=== PATIENT | female | born 1950 | race Caucasian/White ===

== ENCOUNTER → 2016-04-27 | Outpatient (CLI) | payer OTHER ==
--- NOTE | 2016-04-27 17:05 | MA ---
Screening Digital Mammogram With iCAD Analysis Clinical Indications: Routine screening. Technique: Standard cephalocaudal projections are obtained. Digital breast tomosynthesis was performe d in the MLO projection with reconstruction at 1.0 mm slice thickness and composite MLO views reconst ructed. This examination is processed by the iCAD computer aided detection system. Comparison: May 2014 and April 2010. Breast density: Type B; Scattered fibroglandular densities. Findings: CAD was reviewed. No masses, suspicious calcifications or secondary signs of malignancy are seen. There has been no significant change in the appearance of either breast. Impression: Negative mammogram. BI-RADS 1. Recommendation: Routine mammographic screening in one year. [facility] will send a result letter to the patient. Negative mammography should not preclude additional workup of a clinically suspicious finding. The patient's information is entered into a reminder system with a target due date for her next mammo gram.
== END ==
LOC: FIMAGING 14:51
DX: Z12.31 Encounter for screening mammogram for malignant neoplasm of breast (principal)
CPT/HCPCS: G0202

== ENCOUNTER → 2016-12-30 | Outpatient (CLI) | payer OTHER | LOC: FIMAGING 07:55 | PROVIDERS: ATTEND Family Medicine | DX: R10.2 Pelvic and perineal pain (principal) ==

== ENCOUNTER → 2017-09-06 | Outpatient (CLI) | payer OTHER | LOC: FIMAGING 13:59 | PROVIDERS: ATTEND Family Medicine | DX: Z13.820 Encounter for screening for osteoporosis (principal); M85.89 Other specified disorders of bone density and structure, multiple sites ==

== ENCOUNTER → 2018-01-18 | Outpatient (CLI) | payer OTHER | LOC: FIMAGING 13:28 | PROVIDERS: ATTEND Family Medicine | DX: Z12.31 Encounter for screening mammogram for malignant neoplasm of breast (principal); Z80.3 Family history of malignant neoplasm of breast ==

== ENCOUNTER 2018-01-29 18:20 | Inpatient (IN) | payer OTHER ==
[2018-01-29] MEDS ORDERED: fentaNYL 100 MCG/2 ML INJ ONE (18:38)
[2018-01-29] MEDS ORDERED: ONDANSETRON 4 MG/2 ML VIAL ONE (18:38)
[2018-01-29] MEDS ORDERED: fentaNYL 100 MCG/2 ML INJ IVP ONE ×2 (18:39→19:18)
[2018-01-29] MEDS ORDERED: ONDANSETRON 4 MG/2 ML VIAL IVP ONE (18:40)
--- NOTE | 2018-01-29 18:53 | EDPHY ---
H & P Time Seen by Provider: 01/29/18 18:33 HPI/ROS: CHIEF COMPLAINT: Left shoulder pain HISTORY OF PRESENT ILLNESS: Patient is a 59-year-old female who presents emergency department after falling on her left shoulder. The patient's bent over their dog who was having a seizure. The patient thought that her was having seizure so she jumped off the couch. She subsequently tripped landing on her left shoulder. She now has severe left shoulder pain. It is worse with movement. She has no numbness or tingling. She did not strike her head or lose consciousness. No neck or back pain. Patient has had no previous shoulder surgery. Patient had a recent facial peel. REVIEW OF SYSTEMS: 10 systems were reveiwed and are negative with the exception of the elements mentioned in the history of present illness. Past Medical/Surgical History: Includes cataracts Smoking Status: Never smoked Physical Exam: Vitals noted GENERAL: Well-appearing, in no acute distress, alert. HEAD: No evidence of trauma. EYES: PERRLA, EOMI, normal to inspection. ENT: Airway intact, normal external examination. NECK: The trachea is midline. There is no crepitus. The C-spine is nontender. NEXUS criteria is negative (no midline tenderness, no distracting injury, no altered mental status, no recent alcohol use, no focal neurologic deficit). RESPIRATORY: [Clear to auscultation bilaterally, no rales, rhonchi or wheezing. No chest wall tenderness CVS: Regular rate and rhythm, no rubs, murmurs, or gallops. ABDOMEN: Soft, nontender, nondistended, no bruising or abrasions. Pelvis: Stable. No tenderness palpation. BACK: Normal to inspection, no spinal tenderness, no spinal step off, no notable bruising or abrasions. SKIN: Normal color, warm, dry. No pallor or diaphoresis.Patient's skin is peeling on the lateral aspect of her face and neck. EXTREMITIES: Right upper extremity: Atraumatic. No visible signs of trauma. No tenderness palpation. Neurovascular intact distally. Left upper extremity: Left shoulder swelling around the deltoid. There is tenderness to palpation with no crepitus. There is no step-off. The clavicle is intact. Neurovascular intact distally. Right lower extremity: Atraumatic. No visible signs of trauma. No tenderness palpation. Neurovascular intact distally. Left lower extremity: Atraumatic. No visible signs of trauma. No tenderness palpation. Neurovascular intact distally. NEURO/PSYCH: Alert and oriented x 3, GCS 15, normal mood and affect, normal motor sensory exam. Constitutional: Initial Vital Signs Temperature (C) 36.6 C 01/29/18 18:34 Heart Rate 75 01/29/18 18:34 Respiratory Rate 18 01/29/18 18:34 Blood Pressure 143/100 H 01/29/18 18:34 O2 Sat (%) 98 01/29/18 18:34 O2 Delivery Mode Room Air Allergies/Adverse Reactions: Penicillins Allergy (Verified 01/29/18 18:34) Sulfa (Sulfonamide Antibiotics) Allergy (Verified 01/29/18 18:34) sulfamethoxazole [From Septra] Allergy (Verified 01/29/18 18:34) trimethoprim [From Septra] Allergy (Verified 01/29/18 18:34) Medical Decision Making - Diagnostics Imaging Results: Imaging Impressions Shoulder X-Ray 01/29/18 18:32 Impression: 1. Fracture left humeral neck with about 10 mm of displacement of the humeral shaft medially with respect to the humeral head. ED Course/Re-evaluation: In the emergency department I met the patient on arrival. Discussed the plan and answered her questions. IV was placed. Patient was given fentanyl 100 mcg IV and Zofran 4 mg IV. Left shoulder x-ray was ordered Left shoulder x-ray: Please refer the dictated report. The patient has a fracture of her left humeral neck with 10 mm of displacement. I discussed the result with the patient. She was neurovascular intact distally on recheck. She was still having significant pain. She is given a repeat dose of fentanyl 100 mcg IV. I discussed the case with Dr. Colt Gibson. He recommended repair of her fracture. I discussed the case with Dr. Hammer. He will admit the patient. Differential Diagnosis: My differential includes but is not limited to shoulder fracture, shoulder contusion, dislocation, head injury - Data Points Laboratory Results: Laboratory Results 01/29/18 19:05 01/29/18 01/29/18 01/29/18 19:05 19:05 19:05 WBC 7.00 10^3/uL 10^3/uL (3.80-9.50) RBC 4.48 10^6/uL 10^6/uL (4.18-5.33) Hgb 14.1 g/dL g/dL (12.6-16.3) Hct 42.1 % % (38.0-47.0) MCV 94.0 fL fL (81.5-99.8) MCH 31.5 pg pg (27.9-34.1) MCHC 33.5 g/dL g/dL (32.4-36.7) RDW 13.0 % % (11.5-15.2) Plt Count 202 10^3/uL 10^3/uL (150-400) MPV 11.3 fL fL (8.7-11.7) Neut % (Auto) 68.2 % % (39.3-74.2) Lymph % (Auto) 23.4 % % (15.0-45.0) [place] % (Auto) 6.7 % % (4.5-13.0) Eos % (Auto) 1.1 % % (0.6-7.6) Baso % (Auto) 0.3 % % (0.3-1.7) Nucleat RBC Rel Count 0.0 % % (0.0-0.2) Absolute Neuts (auto) 4.77 10^3/uL 10^3/uL (1.70-6.50) Absolute Lymphs (auto) 1.64 10^3/uL 10^3/uL (1.00-3.00) Absolute Monos (auto) 0.47 10^3/uL 10^3/uL (0.30-0.80) Absolute Eos (auto) 0.08 10^3/uL 10^3/uL (0.03-0.40) Absolute Basos (auto) 0.02 10^3/uL 10^3/uL (0.02-0.10) Absolute Nucleated RBC 0.00 10^3/uL 10^3/uL (0-0.01) Immature Gran % 0.3 % % (0.0-1.1) Immature Gran # 0.02 10^3/uL 10^3/uL (0.00-0.10) PT 13.6 SEC SEC (12.0-15.0) INR 1.02 (0.83-1.16) APTT 25.9 SEC SEC (23.0-38.0) Sodium Pending Potassium Pending Chloride Pending Carbon Dioxide Pending Anion Gap Pending BUN Pending Creatinine Pending Estimated GFR Pending Glucose Pending Calcium Pending Medications Given: Discontinued Medications Fentanyl (Sublimaze) 100 mcg IVP EDNOW ONE Stop: 01/29/18 18:40 Last Admin: 01/29/18 18:41 Dose: 100 mcg Fentanyl (Sublimaze) 100 mcg IVP EDNOW ONE Stop: 01/29/18 19:19 Last Admin: 01/29/18 19:22 Dose: 100 mcg Ondansetron HCl (Zofran) 4 mg IVP EDNOW ONE Stop: 01/29/18 18:41 Last Admin: 01/29/18 18:41 Dose: 4 mg Departure - Departure Disposition: [facility] Inpatient Acute Clinical Impression: Fracture, humerus Qualifiers: Encounter type: initial encounter Humerus Location: surgical neck Fracture type : closed Fracture morphology: unspecified fracture morphology Fracture alignment : displaced Laterality: left Qualified Code(s): S42.212A - Unspecified displaced fracture of surgical neck of left humerus, initial encounter for closed fracture Condition: Good
[2018-01-29 19:14] LABS: PLATELET COUNT 202 10^3/uL (150-400)
[2018-01-29 19:24] LABS: INR 1.02 (0.83-1.16); PROTIME(PATIENT) 13.6 SEC (12.0-15.0)
[2018-01-29] MEDS ORDERED: ACETAMINOPHEN 325 MG TAB PO PRN (19:31)
[2018-01-29] MEDS ORDERED: ONDANSETRON DISINTEGRATING 4 MG TAB PO PRN (19:31)
[2018-01-29] MEDS ORDERED: HYDROmorphONE/DILAUDID 1 MG/ML INJ IVP ONE (20:28)
--- NOTE | 2018-01-29 20:32 | PDGENHP ---
History and Physical - Chief Complaint L shoulder pain - History of Present Illness Luh Newell with a PMHx of hypothyroidism who presents to [facility] after a mechanical fall found to have a L humeral neck fracture. She reports she was eating dinner when she thought she heard her say he was having a seizure. Due to this, she got up quickly from sitting and tripped over somehting and fell on her L shoulder. She began to have a sharp pain located in her L shoulder, non-radiating, worse with movement, improved with rest and pain medications. She denies any LOC, dizziness, lightheadedness, chest pain. History Information - Allergies/Home Medication List Allergies/Adverse Reactions: Penicillins Allergy (Verified 01/29/18 18:34) Sulfa (Sulfonamide Antibiotics) Allergy (Verified 01/29/18:) sulfamethoxazole [From Septra] Allergy (Verified 01/29/18 18:34) trimethoprim [From Decra] Allergy (Verified 01/29/18 18:34) I have personally reviewed and updated: family history, medical history, social history, surgical history - Past Medical History Additional medical history: Hypothyroidism - Surgical History Reports: no pertinent surgical hx - Family History Positive for: non-pertinent - Social History Smoking Status: Never smoked Review of Systems Review of Systems: ROS: 10pt was reviewed & negative except for what was stated in HPI & below Physical Exam Physical Exam: Temp Pulse Resp BP Pulse Ox 36.6 C 75 18 143/100 H 98 01/29/18 18:34 01/29/18 18:34 01/29/18 18:34 01/29/18 18:34 01/29/18 18:34 Constitutional: uncomfortable Eyes: PERRL Ears, Nose, Mouth, Throat: moist mucous membranes Cardiovascular: regular rate and rhythym Respiratory: no respiratory distress, clear to auscultation Gastrointestinal: soft, non-tender abdomen Skin: warm Musculoskeletal: pain with ROM Neurologic: AAOx3 Psychiatric: interacting appropriately Lab Data & Imaging Review 01/29/18 19:05 01/29/18 19:05 WBC 7.00 10^3/uL (3.80-9.50) 01/29/18 19:05 RBC 4.48 10^6/uL (4.18-5.33) 01/29/18 19:05 Hgb 14.1 g/dL (12.6-16.3) 01/29/18 19:05 Hct 42.1 % (38.0-47.0) 01/29/18 19:05 MCV 94.0 fL (81.5-99.8) 01/29/18 19:05 MCH 31.5 pg (27.9-34.1) 01/29/18 19:05 MCHC 33.5 g/dL (32.4-36.7) 01/29/18 19:05 RDW 13.0 % (11.5-15.2) 01/29/18 19:05 Plt Count 202 10^3/uL (150-400) 01/29/18 19:05 MPV 11.3 fL (8.7-11.7) 01/29/18 19:05 Neut % (Auto) 68.2 % (39.3-74.2) 01/29/18:05 Lymph % (Auto) 23.4 % (15.0-45.0) 01/29/18:05 [place] % (Auto) 6.7 % (4.5-13.0) 01/29/18 19:05 Eos % (Auto) 1.1 % (0.6-7.6) 01/29/18:05 Baso % (Auto) 0.3 % (0.3-1.7) 01/29/18 19:05 Nucleat RBC Rel Count 0.0 % (0.0-0.2) 01/29/18 19:05 Absolute Neuts (auto) 4.77 10^3/uL (1.70-6.50) 01/29/18 19:05 Absolute Lymphs (auto) 1.64 10^3/uL (1.00-3.00) 01/29/18 19:05 Absolute Monos (auto) 0.47 10^3/uL (0.30-0.80) 01/29/18 19:05 Absolute Eos (auto) 0.08 10^3/uL (0.03-0.40) 01/29/18 19:05 Absolute Basos (auto) 0.02 10^3/uL (0.02-0.10) 01/29/18 19:05 Absolute Nucleated RBC 0.00 10^3/uL (0-0.01) 01/29/18 19:05 Immature Gran % 0.3 % (0.0-1.1) 01/29/18 19:05 Immature Gran # 0.02 10^3/uL (0.00-0.10) 01/29/18 19:05 PT 13.6 SEC (12.0-15.0) 01/29/18 19:05 INR 1.02 (0.83-1.16) 01/29/18 19:05 APTT 25.9 SEC (23.0-38.0) 01/29/18 19:05 Sodium 138 mEq/L (135-145) 01/29/18 19:05 Potassium 3.7 mEq/L (3.3-5.0) 01/29/18 19:05 Chloride 107 mEq/L (97-110) 01/29/18 19:05 Carbon Dioxide 23 mEq/l (22-31) 01/29/18 19:05 Anion Gap 8 mEq/L (6-14) 01/29/18 19:05 BUN 18 mg/dL (7-23) 01/29/18 19:05 Creatinine 0.9 mg/dL (0.6-1.0) 01/29/18 19:05 Estimated GFR > 60 01/29/18 19:05 Glucose 121 mg/dL (70-100) H 01/29/18 19:05 Calcium 9.7 mg/dL (8.5-10.4) 01/29/18 19:05 Assessment & Plan Assessment: Fracture, humerus, Left(Acute) - S/p mechanical fall - Ortho plans to take to OR tomorrow - NPO at midnight - Continue PRN pain medications Hypothyroidism - Continue home Synthroid FEN: NPO at midnight Ppx: Hold until after surgery Code: FULL Dispo: Admit to Observation
[2018-01-29] MEDS ORDERED: LACTULOSE 20 GM/30 ML UDCUP PO PRN (20:40)
[2018-01-29] MEDS ORDERED: POLYETHYLENE GLYCOL 3350 17 GM PKT PO PRN (20:40)
[2018-01-29] MEDS ORDERED: BISACODYL 10 MG SUPP PR PRN (20:40)
[2018-01-29] MEDS ORDERED: MAGNESIUM HYDROXIDE 30 ML UDCUP PO PRN (20:40)
[2018-01-29] MEDS: HYDROCODONE/APAP 5/325 TAB PO PRN (22:36)
[2018-01-29] MEDS: SENNOSIDES/DOCUSATE SODIUM TAB PO SCH (22:37)
[2018-01-30] MEDS: HYDROmorphONE/DILAUDID 1 MG/ML INJ IVP PRN ×4 (00:36→11:33)
[2018-01-30] MEDS: HYDROCODONE/APAP 5/325 TAB PO PRN ×2 (04:40→08:47)
[2018-01-30] MEDS: ONDANSETRON 4 MG/2 ML VIAL IVP PRN ×2 (08:48→15:56)
[2018-01-30] MEDS: SENNOSIDES/DOCUSATE SODIUM TAB PO SCH ×3 (08:49→20:23)
[2018-01-30] MEDS ORDERED: BUPIVACAINE 0.25% 30 ML SDV ONE (09:42)
[2018-01-30] MEDS ORDERED: EPINEPHrine 1 MG/ML INJ ONE (09:42)
[2018-01-30] MEDS ORDERED: ceFAZolin 2 GM/DEXTROSE 100 ML IV ONE (10:00)
--- NOTE | 2018-01-30 12:14 | PDMN ---
Medical Necessity Medical necessity: [facility] Musculoskeletal Surgery or Procedure GR yo w/ acute L humeral neck (shoulder) fracture secondary mechanical fall. Ortho consult, urgent surgery scheduled, NPO status, IVF, frequent pain management admin with IV opioids.
[2018-01-30] MEDS ORDERED: LR 1,000 ML IV ONE (12:27)
--- NOTE | 2018-01-30 12:49 | PDANEPAE ---
ANE History of Present Illness Left proximal humerus ORIF ANE Past Medical History - Cardiovascular History Hx Hypertension: No Hx Arrhythmias: No Hx Chest Pain: No Hx Coronary Artery / Peripheral Vascular Disease: No Hx CHF / Valvular Disease: No Hx Palpitations: No - Pulmonary History Hx COPD: No Hx Asthma/Reactive Airway Disease: No Hx Recent Upper Respiratory Infection: No Hx Oxygen in Use at Home: No Hx Sleep Apnea: No Sleep Apnea Screening Result - Last Documented: Negative - Endocrine History Hx Diabetes: Yes Hypothyroid: No - Chronic Pain History Chronic Pain: No ANE Review of Systems Review of Systems: ANE Patient History - Allergies Allergies/Adverse Reactions: sulfamethoxazole [From ] Allergy (Verified 01/29/18 18:34) trimethoprim [From ] Allergy (Verified 01/29/18 18:34) - Home Medications Home Medications: Levothyroxine [Synthroid 75 mcg (*)] 75 mcg PO DAILY06 01/29/18 [Last Taken ] - NPO status NPO Since - Liquids (Date): 01/29/18 NPO Since - Liquids (Time): 11:55 NPO Since - Solids (Date): 01/29/18 NPO Since - Solids (Time): 11:55 - Smoking Hx Smoking Status: Never smoked ANE Labs/Vital Signs - Labs Result Diagrams: 01/29/18 19:05 01/29/18 19:05 - Vital Signs Blood Pressure: 121/67 Heart Rate: 76 Respiratory Rate: 18 O2 Sat (%): 95 Height: 175.26 cm Weight: 71.668 kg ANE Physical Exam - Airway Neck exam: FROM Mallampati Score: Class 1 Mouth exam: normal dental/mouth exam - Pulmonary Pulmonary: no respiratory distress - Cardiovascular Cardiovascular: regular rate and rhythym - ASA Status ASA Status: II ANE Anesthesia Plan Anesthesia Plan: GA w LMA
[2018-01-30] MEDS ORDERED: CEFAZOLIN 2 GM/DEXTROSE/100 ML BAG IV ONE (12:51)
--- NOTE | 2018-01-30 12:55 | PDHPUP ---
History & Physical Update H&P update statement: This history and physical update is based on an assessment of the patient which was completed after admission or registration (within 24 hours), but prior to the surgery/procedure. H&P update: H&P reviewed & patient examined, no change in patient's condition since H&P completed
[2018-01-30] MEDS ORDERED: fentaNYL 100 MCG/2 ML INJ ONE (13:03)
[2018-01-30] MEDS ORDERED: PROPOFOL 200 MG/20 ML VIAL ONE (13:03)
[2018-01-30] MEDS ORDERED: LIDOCAINE 2% 5 ML SDV ONE (13:05)
[2018-01-30] MEDS ORDERED: ROPIVACAINE HCL 150 MG/30 ML INJ ONE (13:06)
[2018-01-30] MEDS ORDERED: MIDAZOLAM 2 MG/2 ML VIAL ONE (13:07)
[2018-01-30] MEDS ORDERED: DEXAMETHASONE 4 MG/ML VIAL ONE (13:10)
[2018-01-30] MEDS ORDERED: ONDANSETRON 4 MG/2 ML VIAL ONE (13:10)
[2018-01-30] MEDS ORDERED: KETOROLAC 30 MG/1 ML SDV ONE (13:10)
[2018-01-30] MEDS ORDERED: MIDAZOLAM 2 MG/2 ML VIAL IVP ONE (13:11)
--- NOTE | 2018-01-30 13:11 | POSTANESTH ---
Post Anesthetic Evaluation Cardiovascular Status: Normal, Stable Respiratory Status: Normal, Stable Level of Consciousness/Mental Status: Can Participate in Eval, Alert and Oriented Pain Control: Adequate, Prn Tx Ordered Nausea/Vomiting Control: Adequate, Prn Tx Ordered Complications Possibly Related to Anesthesia: None Noted
--- NOTE | 2018-01-30 13:26 | GCON ---
DATE OF CONSULTATION: 01/30/2018 PREOPERATIVE DIAGNOSIS: Left proximal humerus fracture. CHIEF COMPLAINT: Left proximal humerus fracture. HISTORY OF PRESENT ILLNESS: This is a female who fell while getting up to check on her who she thought was having a seizure. She tripped and landed directly on the shoulder, had immediate shoulder pain. She denied other injuries. She denied any loss of consciousness. She denies prior injury to this shoulder. ALLERGIES: To penicillin, sulfa, and Bactrim. PAST MEDICAL HISTORY: reviewed an non contributory. PAST SURGICAL HISTORY: Non-pertinent. FAMILY HISTORY: Reviewed, non-pertinent. SOCIAL HISTORY: She is nonsmoker and never smoked. MEDICATIONS: Please see inpatient list. REVIEW OF SYSTEMS: 10-point review of systems is performed noted above. PHYSICAL EXAM: GENERAL: She is alert, oriented. She is appropriate. She is in no distress. She is comfortable. HEENT: Her head is atraumatic and normocephalic. Her eyes are equal and reactive. Her mouth has moist mucous membranes. NECK: Supple. CARDIOVASCULAR: She has a regular rate and regular rhythm. RESPIRATORY: Rate shows no respiratory distress. ABDOMEN: Soft. EXTREMITIES: Her left upper extremity is in a sling. She is tender about the shoulder. She is nontender about the arm, the elbow and hand. She can move her hand and elbow well with no problems. She is neurovascularly intact. In the right upper extremity, she showed good range of motion. No evidence of tenderness, neurovascularly intact. Lower extremities are neurovascularly intact. Good range of motion. No evidence of tenderness. IMAGING: X-rays show an acute displaced left proximal humerus fracture. PLAN: Given the displacement, the amount of pain she has, and her high functional demands, I would recommend surgery for this. This will involve an ORIF. We discussed risks of nerve injury, particularly the axillary nerve. It is difficult to assess the axillary nerve at this point as well, it may have been injured during the injury. We discussed risks of wound complications, hardware complications, arthritis, pain, and she has elected to proceed. Informed consent was obtained. All questions were answered. She is marked preoperatively. /[id number]/MODL MTDD
[2018-01-30] MEDS ORDERED: ePHEDrine SULFATE 25 MG/5 ML SYR ONE (13:35)
--- NOTE | 2018-01-30 14:03 | ASMTCMCOM ---
CM Note CM Note Notes: Pt to OR today for L humerus fx after a fall at home. Pt resides with spouse. PT/OT to eval when appropriate. CM to follow. Date Signed: 01/30/2018 02:02 PM Electronically Signed By:SOPHIE Jamison
[2018-01-30] MEDS ORDERED: LR 500 ML IV PRN (14:25)
[2018-01-30] MEDS ORDERED: NALOXONE HCL 0.4 MG/ML INJ IVP PRN (14:25)
[2018-01-30] MEDS ORDERED: fentaNYL 100 MCG/2 ML INJ IVP PRN (14:25)
[2018-01-30] MEDS ORDERED: PROMETHAZINE HCL 25 MG/ML INJ IVP PRN (14:25)
[2018-01-30] MEDS ORDERED: ALBUTEROL 3 ML DEYVIAL IH PRN (14:25)
[2018-01-30] MEDS ORDERED: HYDROCODONE/APAP 5/325 TAB PO PRN (14:25)
[2018-01-30] MEDS ORDERED: ACETAMINOPHEN 500 MG TAB PO PRN (14:25)
[2018-01-30] MEDS ORDERED: oxyCODONE IR 5 MG TAB PO PRN (14:25)
[2018-01-30] MEDS ORDERED: HYDROmorphONE/DILAUDID 2 MG/ML INJ IVP PRN (14:25)
[2018-01-30] MEDS ORDERED: ONDANSETRON 4 MG/2 ML VIAL IVP PRN (14:25)
--- NOTE | 2018-01-30 14:44 | POSTOPPROG ---
Post Op Note Date of Operation: 01/30/18 Surgeon: Colt Gibson Care Clinician: Stephen Anesthesia: GET(General Endotracheal) Pre-op Diagnosis: L prox humerus fx Post-op Diagnosis: same Indication: above Procedure: ORIF L prox humerus fx Inf/Abcess present in the surg proc area at time of surgery?: No EBL: 50-100
--- NOTE | 2018-01-30 18:11 | HOSPPROG ---
Hospitalist Progress Note Assessment/Plan: The patient is a 67-year-old female with PMH hypothyroidism who was admitted for an acute left shoulder fracture. ASSESSMENT/PLAN: Left shoulder fracture, status post repair today Left shoulder pain Hypothyroid -analgesia as needed. -changing admission from observation to inpatient since patient is in a lot of pain postop and also feels very lethargic and requires ongoing pain control/ monitoring VTE prophylaxis: None. Ambulatory, leaving tomorrow. Code Status: Full code. Status: Inpatient for greater than 2 midnight stay. Disposition: [facility] with discharge tomorrow. This patient is new to me. Reviewed patient's chart/records for this visit. ____ SUBJECTIVE: Patient was seen postop. Feeling okay, anesthesia wearing off. OBJECTIVE: Physical Exam: General: The patient is a female who is alert and in no acute distress. HEENT: normocephalic, extraocular movements intact, conjunctivae clear. Mucous membranes moist. Neck: trachea midline, no visible masses. Abd: soft and nondistended. Musculoskeletal: Normal muscle tone/bulk. Neuro: cranial nerves II XII grossly intact. Intact gross motor and sensory function. Psych: Appropriate mood and appropriate affect. Skin: No pallor. No petechiae. Labs/Imaging/Other Tests: Personally reviewed/interpreted. Left shoulder x-ray-acute fracture noted Objective: Vital Signs Temp Pulse Resp BP Pulse Ox 36.2 C 75 14 102/52 L 92 01/30/18 17:45 01/30/18 17:45 01/30/18 17:45 01/30/18 17:45 01/30/18 17:45 01/29/18 01/30/18 01/31/18 05:59 05:59 05:59 Intake Total 1000 100 Output Total 0 Balance 1000 100 PT 13.6 SEC (12.0-15.0) 01/29/18 19:05 INR 1.02 (0.83-1.16) 01/29/18 19:05 - Time Spent With Patient Time Spent with Patient: greater than 25 minutes Time Spent with Patient: Greater than 25 minutes spent on this patients care, greater than 50% of time spent counseling, educating, and coordinating care regarding the above mentioned plan. ICD10 Worksheet Patient Problems: Problems Problem Status Onset Fracture, humerus Acute
--- NOTE | 2018-01-30 22:58 | GOP ---
DATE OF OPERATION: SURGEON: Colt Gibson MD BLACK ASH BURNER OPERATOR: Deondre Mitchell SA. PREOPERATIVE DIAGNOSIS: Left proximal humerus fracture. POSTOPERATIVE DIAGNOSIS: Left proximal humerus fracture. PROCEDURE PERFORMED: ORIF left proximal humerus fracture. FINDINGS: SPECIMENS: None. ESTIMATED BLOOD LOSS: 5 mL. INDICATIONS: Female with a displaced, angulated proximal humerus fracture, significant pain. Discus sed both nonoperative and operative treatment. She elected to proceed with surgery. Discussed risks of nonunion, malunion, continued pain, nerve injury, existing injury to the axillary nerve, wound co mplications, infection, hardware prominence, collapse, fracture displacement. She elected to proceed . Informed consent was obtained after all questions were answered. DESCRIPTION OF PROCEDURE: She was marked preoperatively and taken to the operative suite, sterilely prepped and draped in normal fashion. A time-out was performed verifying the site, side, location, i n agreement with the team. I injected her with Marcaine with epinephrine. 0.25%. She had a block, t oo. I made an anterior incision approach to the shoulder, bluntly dissecting muscle to protect neuro vascular structures. I came down to her fracture, which was somewhat impacted and significantly disp laced. With longitudinal traction and manipulation, I was able to manipulate this back into place. I then got a provisional reduction. I selected the plate and placed this on the bone, placed the cor tical screw, placed locking screws proximally, and nonlocking and locking screws distally, achieving good fixation. I moved this as a unit and it moved well. I took x-rays, showing no screws in the miller int, good fixation, stable construct. She was irrigated, closed with 0 Vicryl, 2-0 Vicryl, 3-0 Quill , and Dermabond. She was taken to PACU in stable condition. IMPLANT: Synthes anterior proximal humerus plate with locking and nonlocking screws. COMPLICATIONS: None. DRAINS: None. CONDITION: Stable. /[id number]/MODL
[2018-01-31] MEDS: HYDROCODONE/APAP 5/325 TAB PO PRN ×3 (03:42→11:59)
[2018-01-31] MEDS ORDERED: LEVOTHYROXINE 75 MCG TAB PO SCH (06:00)
[2018-01-31] MEDS: SENNOSIDES/DOCUSATE SODIUM TAB PO SCH (07:43)
--- NOTE | 2018-01-31 11:21 | PDDCSUM ---
Discharge Summary Discharge Summary: Date of Admission: January 29, 2018 Date of Discharge: January 31, 2018 Discharge Diagnoses: Acute left proximal humerus fracture, status post repair Left shoulder pain, secondary to above Hypothyroidism Admission Diagnoses: Acute left displaced humerus fracture Left shoulder pain Mechanical fall Hypothyroidism Consultants: Orthopedic surgery-Dr. Gibson Hospital Course: The patient is a 67-year-old female with a history of hypothyroidism who fractured her humerus the evening she was admitted to the hospital. She was sitting at home, when she thought her say he was having a seizure. She quickly studied up while turning and tripped on the leg of her sofa, flying several feet in the air before landing on her left shoulder. She experienced immediate severe pain, worse than childbirth. The next day the patient underwent surgical repair of her shoulder. She tolerated the procedure fine but was sedated from the procedure. She underwent observation overnight and was discharged home the next day in stable condition. Physical Exam: General: The patient is a female who is alert and in no acute distress. HEENT: normocephalic, extraocular movements intact, conjunctivae clear, no lesions on face. Mucous membranes moist. Neck: trachea midline, no visible masses, no external lesions. Abd: soft and nondistended. Musculoskeletal: Left arm in a sling Neuro: cranial nerves II XII grossly intact. Intact gross motor and sensory function. Psych: appropriate mood/affect. Skin: No pallor. Heme/lymph: No peripheral edema. Condition: Stable. Discharged to: Home. Pertinent tests/labs/imaging: L shoulder XR - fracture of left humeral neck with about 10 mm of displacement of the left humeral shaft medially with respect to the humeral head Medications: Please see med rec form. Provided prescription for [place] 5 mg/325 mg tab, take 1 tab p. o. 4 times a day as needed for pain #28. Special instructions: 5 lb weight-bearing limit to left upper extremity. Range of motion as tolerated. Keep dressing on. May shower. Apply ice or heat as needed. Okay to use 10s unit or topical pain relief cream. Follow up: Follow up with PCP in 2 weeks. Follow up with orthopedic surgeon in 1 week or as recommended by their office. </> 30 minutes of total time was spent on counseling and coordination of care for this patient's discharge.
--- NOTE | 2018-01-31 15:08 | ASMTLACE ---
LACE Length of stay for Answers: 3 days current admission Acuity / Level of Answers: Yes Care: Did the patient have an inpatient admission? Comorbidities - select Answers: Diabetes (uncontrolled or all that apply controlled) Other Notes: Hypothyroidism # of Emergency department Answers: 1-2 visits in the last 6 months Score: 9 Date Signed: 01/31/2018 03:08 PM Electronically Signed By:SOPHIE Jamison
--- NOTE | 2018-01-31 15:09 | ASMTCMCOM ---
CM Note CM Note Notes: OT rec home, PT rec home/outpatient. Pt medically stable for d/c, no CM d/c needs identified. Date Signed: 01/31/2018 03:08 PM Electronically Signed By:SOPHIE Jamison
[2018-01-31 18:06] VITALS: BP 121/67
== END 2018-01-31 11:54 | disposition home or self-care (01) | DRG 494 ==
LOC: F3N 21:21
PROVIDERS: ADMIT Internal Medicine; ATTEND Internal Medicine
PROC: 0PSD04Z Reposition Left Humeral Head with Internal Fixation Device, Open Approach (ICD-10-PCS; principal; 2018-01-30 13:00)
DX: S42.212A Unspecified displaced fracture of surgical neck of left humerus, initial encounter for closed fracture (principal); W01.0XXA Fall on same level from slipping, tripping and stumbling without subsequent striking against object, initial encounter; Y92.018 Other place in single-family (private) house as the place of occurrence of the external cause; E03.9 Hypothyroidism, unspecified
CPT/HCPCS: 96374; 97161-GP; 97165-GO; A4565; C1713; G8987-GO-CI; G8988-GO-CI; G8989-GO-CI; J0171; J0690; J1100; J1170; J1885; J2250; J2405; J2704; J2795; J3010

== ENCOUNTER 2018-08-10 12:17 | Emergency (ER) | payer OTHER ==
[2018-08-10 12:56] LABS: PLATELET COUNT 228 10^3/uL (150-400)
--- NOTE | 2018-08-10 13:22 | EDPHY ---
H & P Stated Complaint: midsternal chest pressure and tightness, nausea, SOB Time Seen by Provider: 08/10/18 12:40 HPI/ROS: CHIEF COMPLAINT: Chest tightness Limitations: vague historian HISTORY OF PRESENT ILLNESS: 67-year-old female presents with intermittent chest tightness. Onset of chest tightness 2 weeks ago. The tightness has been intermittent, without obvious alleviating or aggravating factors. Onset of chest tightness this morning at 9:00 a.m.. Associated with an episode of dizziness, nausea and palpitations. Continues to have moderate chest tightness. Cardiac risk factors negative. Nonsmoker; no family history; no hypertension, diabetes or hypercholesterolemia. REVIEW OF SYSTEMS: complete 10 point ROS reviewed and is negative except for the noted elements in the HPI Source: Patient - Personal History Current Tetanus/Diphtheria Vaccine: Unsure Current Tetanus Diphtheria and Acellular Pertussis (TDAP): Unsure - Medical/Surgical History Hx Asthma: No Hx Chronic Respiratory Disease: Yes Hx Diabetes: Yes Hx Cardiac Disease: No Hx Renal Disease: No Hx Cirrhosis: No Hx Alcoholism: No Hx HIV/AIDS: No Hx Splenectomy or Spleen Trauma: No Other PMH: medical Bronchitis, pre Diabetic surgery appendectomy, cataract surgery (dec 2017), tonselectomy - Social History Smoking Status: Never smoked Alcohol Use: Sober Additional Social History: - Physical Exam Exam: General Appearance: Alert, pleasant Eyes: Pupils equal and round, no conjunctival pallor or injection ENT, Mouth: Mucous membranes moist Neck: Normal inspection Respiratory: Normal inspection, tender over the lower sternum, Lungs are clear to auscultation Cardiovascular: Regular rate and rhythm Gastrointestinal: Abdomen is soft and nontender Neurological: A&O, nonfocal, normal gait Skin: Warm and dry, no rash Extremities: Nontender, no pedal edema Psychiatric: Mood and affect normal Constitutional: Initial Vital Signs Temperature (C) 37 C 08/10/18 12:19 Heart Rate 86 08/10/18 12:19 Respiratory Rate 16 08/10/18 12:19 Blood Pressure 135/71 H 08/10/18 12:19 O2 Sat (%) 96 08/10/18 12:19 O2 Delivery Mode Room Air Allergies/Adverse Reactions: gluten Allergy (Verified 08/10/18 12:19) Milk Containing Products [dairy] Allergy (Verified 08/10/18 12:19) Home Medications: Medication Instructions Recorded Levothyroxine [Synthroid 75 mcg 75 mcg PO DAILY06 01/29/18 (*)] Hydrocodone/Acetaminophen [[place] 1 each PO Q6H PRN #28 tablet 01/31/18 5/325 (*)] Medical Decision Making - Diagnostics EKG Interpretation: EKG interpreted by me reveals normal sinus rhythm, normal axis and intervals, no ST or T segment changes. Interpretation: Normal EKG Imaging Results: Imaging Impressions Chest X-Ray 08/10/18 12:40 Impression: Mild peribronchial thickening which can be seen with airways disease /bronchitis or minimal fluid overload. Chest x-ray independently reviewed by me reveals no acute disease. Imaging: I viewed and interpreted images myself ED Course/Re-evaluation: This patient presents with intermittent chest discomfort, without exertional features. Stat EKG reveals no evidence of ischemia or dysrhythmia. Initial troponin is normal. Heart score is 2 (for age). Age adjusted D-dimer is normal and chest x-ray is unremarkable. Shared decision making with the patient. Had an extensive conversation with the patient, as did the ED RN. She declines admission or further evaluation. She will follow up with Cardiology in the office. Differential Diagnosis: Differential diagnosis includes though it is not limited to pneumonia, pneumothorax, pulmonary embolism, aortic dissection, pericarditis, acute coronary syndrome. - Data Points Laboratory Results: Laboratory Results 08/10/18 12:45 08/10/18 12:45 08/10/18 08/10/18 08/10/18 12:45 12:45 12:45 WBC RBC Hgb Hct MCV MCH MCHC RDW Plt Count MPV Neut % (Auto) Lymph % (Auto) Mcdowell % (Auto) Eos % (Auto) Baso % (Auto) Nucleat RBC Rel Count Absolute Neuts (auto) Absolute Lymphs (auto) Absolute Monos (auto) Absolute Eos (auto) Absolute Basos (auto) Absolute Nucleated RBC Immature Gran % Immature Gran # D-Dimer 0.78 ug/mLFEU H ug/mLFEU (0.00-0.50) Sodium 139 mEq/L mEq/L (135-145) Potassium 3.8 mEq/L mEq/L (3.5-5.2) Chloride 106 mEq/L mEq/L (97-110) Carbon Dioxide 24 mEq/l mEq/l (22-31) Anion Gap 9 mEq/L mEq/L (6-14) BUN 18 mg/dL mg/dL (7-23) Creatinine 0.8 mg/dL mg/dL (0.6-1.0) Estimated GFR > 60 Glucose 100 mg/dL mg/dL (70-100) Calcium 9.7 mg/dL mg/dL (8.5-10.4) POC Troponin I 0.02 ng/mL ng/mL (0.00-0.08) NT-Pro-B Natriuret Pep 45 pg/mL pg/mL (0-125) 08/10/18 12:45 WBC 8.60 10^3/uL 10^3/uL (3.80-9.50) RBC 4.82 10^6/uL 10^6/uL (4.18-5.33) Hgb 15.0 g/dL g/dL (12.6-16.3) Hct 45.6 % % (38.0-47.0) MCV 94.6 fL fL (81.5-99.8) MCH 31.1 pg pg (27.9-34.1) MCHC 32.9 g/dL g/dL (32.4-36.7) RDW 13.3 % % (11.5-15.2) Plt Count 228 10^3/uL 10^3/uL (150-400) MPV 10.9 fL fL (8.7-11.7) Neut % (Auto) 73.8 % % (39.3-74.2) Lymph % (Auto) 18.0 % % (15.0-45.0) Mcdowell % (Auto) 6.5 % % (4.5-13.0) Eos % (Auto) 1.2 % % (0.6-7.6) Baso % (Auto) 0.3 % % (0.3-1.7) Nucleat RBC Rel Count 0.0 % % (0.0-0.2) Absolute Neuts (auto) 6.34 10^3/uL 10^3/uL (1.70-6.50) Absolute Lymphs (auto) 1.55 10^3/uL 10^3/uL (1.00-3.00) Absolute Monos (auto) 0.56 10^3/uL 10^3/uL (0.30-0.80) Absolute Eos (auto) 0.10 10^3/uL 10^3/uL (0.03-0.40) Absolute Basos (auto) 0.03 10^3/uL 10^3/uL (0.02-0.10) Absolute Nucleated RBC 0.00 10^3/uL 10^3/uL (0-0.01) Immature Gran % 0.2 % % (0.0-1.1) Immature Gran # 0.02 10^3/uL 10^3/uL (0.00-0.10) D-Dimer Sodium Potassium Chloride Carbon Dioxide Anion Gap BUN Creatinine Estimated GFR Glucose Calcium POC Troponin I NT-Pro-B Natriuret Pep Point of Care Test Results: Chemistry 08/10/18 12:45 POC Troponin I 0.02 ng/mL ng/mL (0.00-0.08) Departure - Departure Disposition: Home, Routine, Self-Care Clinical Impression: Chest pain Condition: Good Instructions: Chest Pain (ED) Additional Instructions: 1. Based upon the testing done in the Emergency Department today we see no evidence of a heart attack. 2. We are unable to fully exclude coronary artery disease based upon the testing available in the Emergency Department. 3. For this reason, we would like you to be seen by cardiology for consideration of additional testing within the next 3 days. 4. Please contact the family life counselor you have been referred to schedule this appointment as soon as possible. Their offices are typically open from 8:30am- 5pm M-F. 5. Please return to the Emergency Department immediately for any recurrent chest pain, difficulty breathing or other concerns. 6. Take an aspirin daily. Referrals: Alfonso White MD [Medical Doctor] - As per Instructions
[2018-08-10 13:59] VITALS: BP 111/72
--- NOTE | 2018-08-10 14:31 | CPEKG ---
Test Reason : OPEN Blood Pressure : / mmHG Vent. Rate : 077 BPM Atrial Rate : 078 BPM P-R Int : 189 ms QRS Dur : 091 ms QT Int : 384 ms P-R-T Axes : 080 084 072 degrees QTc Int : 435 ms Sinus rhythm Borderline right axis deviation Confirmed by Asiya Lawrence ([id number]) on 08/10/2018 2:30:51 PM Referred By: PHYSICIAN ED Confirmed By:Asiya Lawrence
== END 2018-08-10 14:33 | disposition home or self-care (01) ==
DX: R07.89 Other chest pain (principal)
CPT/HCPCS: 84484-ER